=== PATIENT | female | born 2000 | race Two or more races ===

== ENCOUNTER 2022-02-03 17:44 | Emergency (ER) | payer MEDICAID ==
[~2022-02-03] VITALS: Ht 154.9 cm; Wt 54.4 kg
[2022-02-03] MEDS ORDERED: predniSONE 20 MG TABLET PO ONE (18:00)
[2022-02-03] MEDS ORDERED: IPRATROPIUM NEB FS 0.5 MG/2.5 ML AMPUL.NEB NEB ONE (18:00)
[2022-02-03] MEDS ORDERED: ALBUTEROL FS 2.5 MG/3 ML VIAL.NEB NEB ONE (18:00)
[2022-02-03 18:03] VITALS: BP 112/59
[2022-02-03] MEDS ORDERED: predniSONE 20 MG TABLET ONE (18:07)
[2022-02-03] MEDS ORDERED: ALBUTEROL FS 2.5 MG/3 ML VIAL.NEB ONE (18:10)
[2022-02-03] MEDS ORDERED: IPRATROPIUM NEB FS 0.5 MG/2.5 ML AMPUL.NEB ONE (18:11)
--- NOTE | 2022-02-03 19:00 | NUR ---
BREATHING TX ADMINISTERED BY RT AT BEDSIDE
[2022-02-03] MEDS ORDERED: PRED20TA PO (19:27)
[2022-02-03] MEDS ORDERED: ALBU18HF2 INH (19:27)
--- NOTE | 2022-02-03 19:36 | NUR ---
Patient discharged to home in stable condition. Written and verbal after care instructions given. Patient verbalizes understanding of instruction.
== END 2022-02-03 19:37 | disposition home or self-care (01) ==
LOC: ER 17:55
DX: J45.901 Unspecified asthma with (acute) exacerbation (principal); F17.200 Nicotine dependence, unspecified, uncomplicated; Z79.899 Other long term (current) drug therapy
CPT/HCPCS: 99283; 94799; 94640; J7512